=== PATIENT | female | born 1985 | race Caucasian/White ===

== ENCOUNTER 2017-03-01 10:07 | Inpatient (IN) | END 2017-03-04 13:10 | disposition home or self-care (01) | DRG 941 ==

== ENCOUNTER 2018-05-31 06:29 | Emergency (ER) | payer MEDICAID ==
[~2018-05-31] VITALS: Ht 152.4 cm; Wt 66.5 kg
[~2018-05-31 06:29] MED LIST: CALC600T24 PO; IBUP-1542 PO; PREN1TAB17 PO
[2018-05-31 06:31] VITALS: RESP 24; Ht 152.4 cm; Wt 66.5 kg
[2018-05-31] MEDS ORDERED: SOD CHLORIDE 0.9% 150 ML IV STA (06:38)
[2018-05-31] MEDS ORDERED: morphine 4 MG/ML VIAL IV STA (06:38)
[2018-05-31] MEDS ORDERED: ONDANSETRON 4 MG INJ IV STA (06:38)
[2018-05-31] MEDS ORDERED: KETOROLAC 15 MG INJ IV STA (06:38)
[2018-05-31] MEDS ORDERED: SOD CHLORIDE 0.9% 1,000 ML IV STA (07:06)
[2018-05-31] MEDS ORDERED: PIPER-TAZO 3.375 GM IV (PMX) 100 ML IVPB ONE (08:00)
[2018-05-31] MEDS ORDERED: ACET325T33 PO (09:01)
[2018-05-31] MEDS ORDERED: ONDA4TAB14 PO (09:01)
[2018-05-31] MEDS ORDERED: AMOX1TAB9 PO (09:01)
[2018-05-31 09:03] VITALS: BP 120/74; PULSE 71
--- NOTE | 2018-05-31 09:03 | ERD ---
ER Documentation Chief Complaint Chief Complaint RLQ PAIN AND NAUSEA X 1 HOUR HPI 33-year-old female presents the emergency department complaining of right upper quadrant abdominal pain. Patient states that she had the acute onset of a severe right upper quadrant abdominal pain that is been colicky and severe since onset. It is associated with nausea but no vomiting. She reports no fevers or chills. She reports no urinary or gynecologic symptoms. Pain is localized to that single area and does not radiate. ROS All systems reviewed and are negative except as per history of present illness. Medications Home Meds Active Scripts Acetaminophen* (Tylenol*) 325 Mg Tablet, 2 TAB PO Q6 PRN for PAIN AND OR ELEVATED TEMP, #20 TAB Prov:AMADOU BERMUDEZ 05/31/18 Ondansetron (Ondansetron Odt) 4 Mg Tab.rapdis, 4 MG PO Q6H PRN for NAUSEA AND/OR VOMITING, #10 TAB Prov:AMADOU BERMUDEZ 05/31/18 Amoxicillin/Potassium Clav (Amox-Clav 500-125 mg Tablet) 500-125 mg Tab, 1 TAB PO BID for 10 Days, TAB Prov:AMADOU BERMUDEZ 05/31/18 Ibuprofen* (Ibuprofen*) 600 Mg Tablet, 600 MG PO Q6, #30 TAB 0 Refills Prov:RODRÍGUEZ CHU MD 03/03/17 Reported Medications Calcium Carbonate* (Calcium Carbonate*) 600 MG Ca Tab, 600 MG PO DAILY, TAB 08/14/14 Vit-Iron Fumarate-FA ( Tablet) 1 Each Tablet, 1 TAB PO DAILY, TAB 08/14/14 Allergies Allergies: Coded Allergies: No Known Allergies (Verified Allergy, Unknown, 03/01/17) PMhx/Soc History of Surgery: No Anesthesia Reaction: No Hx Neurological Disorder: No Hx Respiratory Disorders: No Hx Cardiac Disorders: No Hx Psychiatric Problems: No Hx Miscellaneous Medical Probl: No Hx Alcohol Use: No Hx Substance Use: No Hx Tobacco Use: No Smoking Status: Never smoker FmHx Noncontributory for chief complaint Physical Exam Vitals Vital Signs Date Temp Pulse Resp B/P (MAP) Pulse Ox O2 O2 Flow FiO2 Time Delivery Rate 05/31/18 97.8 79 24 140/87 99 06:31 (104) Physical Exam GENERAL: The patient is well developed and appropriate for usual state of health in no apparent distress other than the discomfort from her abdominal pain HEENT: Pupils equal, round, and reactive to light. EOMI. There is no scleral icterus. NECK: C-spine is soft and supple, there is no meningismus. There is no cervical lymphadenopathy. LUNGS: Clear to auscultation bilaterally. There are no rales, wheezes or rhonchi. HEART: Regular rate and rhythm, no murmurs, clicks, rubs or gallops. ABDOMEN: Right upper quadrant tenderness. No rebound or guarding. No significant Szymanski sign. No CVA tenderness. EXTREMITIES: There is no peripheral cyanosis or edema. No focal swelling or erythema. NEURO: The patient moves all four extremities with 5/5 strength. Cranial nerves II - XII are intact. Normal gait. Alert and oriented SKIN: There is no apparent rash or petechiae. HEME/LYMPHATIC: There is no evidence of excessive bruising or lymphedema. PSYCHIATRIC: The patient does not appear anxious or depressed. Result Diagram: 05/31/18 0650 05/31/18 0650 Results 24 hrs Laboratory Tests Test 05/31/18 06:05 05/31/18 06:50 05/31/18 06:51 Urine Color YELLOW Urine Clarity SLIGHTLY CLOUDY Urine pH 5.0 Urine Specific [place] 1.025 Urine Ketones NEGATIVE mg/dL Urine Nitrite NEGATIVE mg/dL Urine Bilirubin NEGATIVE mg/dL Urine Urobilinogen NEGATIVE mg/dL Urine Leukocyte Esterase 2+ Gee/ul Urine Microscopic RBC 5 /HPF Urine Microscopic WBC 15 /HPF Urine Squamous Epithelial Cells MODERATE /HPF Urine Bacteria FEW /HPF Urine Hemoglobin 2+ mg/dL Urine Glucose NEGATIVE mg/dL Urine Total Protein NEGATIVE mg/dl White Blood Count 8.1 10^3/ul Red Blood Count 4.26 10^6/ul Hemoglobin 12.7 g/dl Hematocrit 38.7 % Mean Corpuscular Volume 90.8 fl Mean Corpuscular Hemoglobin 29.8 pg Mean Corpuscular 32.8 g/dl Hemoglobin Concent Red Cell Distribution Width 12.4 % Platelet Count 292 10^3/UL Mean Platelet Volume 9.6 fl Immature Granulocytes % 0.400 % Neutrophils % 58.8 % Lymphocytes % 31.3 % Monocytes % 6.8 % Eosinophils % 2.2 % Basophils % 0.5 % Nucleated Red Blood Cells % 0.0 /100WBC Immature Granulocytes # 0.030 10^3/ul Neutrophils # 4.7 10^3/ul Lymphocytes # 2.5 10^3/ul Monocytes # 0.6 10^3/ul Eosinophils # 0.2 10^3/ul Basophils # 0.0 10^3/ul Nucleated Red Blood Cells # 0.0 10^3/ul Sodium Level 142 mmol/L Potassium Level 4.2 mmol/L Chloride Level 106 mmol/L Carbon Dioxide Level 24 mmol/L Anion Gap 12 Blood Urea Nitrogen 20 mg/dl Creatinine 0.56 mg/dl Est Glomerular Filtrat > 60 mL/min Rate mL/min Glucose Level 122 mg/dl Calcium Level 9.7 mg/dl Total Bilirubin 0.2 mg/dl Direct Bilirubin 0.00 mg/dl Indirect Bilirubin 0.2 mg/dl Aspartate Amino Transf (AST/SGOT) 20 IU/L Alanine 29 IU/L Aminotransferase (ALT/SGPT) Alkaline Phosphatase 132 IU/L Total Protein 7.7 g/dl Albumin 4.6 g/dl Globulin 3.10 g/dl Albumin/Globulin Ratio 1.48 Lipase 148 U/L POC Beta HCG, Qualitative NEGATIVE Current Medications Medications Dose Sig/Al Start Time Status Last (Trade) Ordered Route PRN Stop Time Admin Dose Reason Admin Sodium 150 ml @ Q1H STAT 05/31/18 DC Chloride 150 mls/hr IV 06:38 05/31/18 07:37 Morphine 4 mg ONCE STAT 05/31/18 DC 05/31/18 Sulfate IV 06:38 05/31/18 07:00 (morphine) 06:40 Ondansetron 4 mg ONCE STAT 05/31/18 DC 05/31/18 HCl (Zofran IV 06:38 05/31/18 07:00 Inj) 06:40 Ketorolac 15 mg ONCE STAT 05/31/18 DC 05/31/18 Tromethamine IV 06:38 05/31/18 07:00 (Toradol) 06:40 Sodium 1,000 ml @ Q1H STAT 05/31/18 DC 05/31/18 Chloride 1,000 mls/hr IV 07:06 05/31/18 07:31 08:05 Piperacillin 100 ml @ ONCE ONCE 05/31/18 DC 05/31/18 Sod/ 200 mls/hr IVPB 08:00 05/31/18 08:17 Tazobactam 08:29 Sod Procedures/MDM Patient was taken to a room, seen and evaluated. Comfort measures were initiated. Diagnostic tests were ordered and reviewed. RADIOLOGY: Reviewed with the radiologist REEVALUATION: 0900: Diagnostic tests were appreciated. Sterile examinations of the abdomen remained benign her pain completely resolved. MEDICAL DECISION MAKING: Patient presents with abdominal pain of uncertain etiology. Differential diagnosis considered includes appendicitis, diverticulitis, cholecystitis and other intra-abdominal medical and surgical concerns. I have reviewed the patients lab studies and imaging as well as multiple examinations of the abdomen. Initial diagnostic test demonstrated evidence of cholecystitis. After antibiotics and supportive care in the emergency department, her pain is well controlled and she shows no evidence of significant infection, obstruction or pancreatitis. I have discussed both inpatient and outpatient options with the patient and she feels comfortable with outpatient care at this time. Departure Diagnosis: Primary Impression: Cholecystitis Condition: Stable Patient Instructions: Cholecystitis, Confirmed Additional Instructions: Consulte a drake mdico para el seguimiento segn lo discutido. Lleve shelli copia de los resultados de drake prueba, si corresponde, a esta visita de seguimiento. Consulte a drake mdico o regrese aqu si flakita sntomas no mejoran bronson se esperaba. En cualquier momento, regrese al departamento de emergencias por cualquier cambio o empeoramiento en flakita sntomas. AMADOU BERMUDEZ May 31, 2018 09:03
== END 2018-05-31 09:09 | disposition home or self-care (01) ==
LOC: FTE 06:29
DX: K81.9 Cholecystitis, unspecified (principal)
CPT/HCPCS: 76705; 80053; 81001; 81025; 83690; 85025; J1885; J2270; J2405; J2543; J7030; J7040; 36415; 96361; 96374; 96375

== ENCOUNTER 2018-06-19 03:50 | Emergency (ER) | payer MEDICAID ==
[~2018-06-19] VITALS: Ht 160 cm; Wt 66.8 kg
[~2018-06-19 03:50] MED LIST changes: +ACET325T33 PO; +AMOX1TAB9 PO; +ONDA4TAB14 PO
[2018-06-19 03:54] VITALS: Ht 160 cm; Wt 66.8 kg
[2018-06-19] MEDS ORDERED: ONDANSETRON (ODT) 4 MG TAB ODT STA (04:19)
[2018-06-19] MEDS ORDERED: KETOROLAC 30 MG INJ IM STA (04:19)
[2018-06-19] MEDS ORDERED: ONDA4TAB14 PO (05:45)
[2018-06-19] MEDS ORDERED: IBUP-1542 PO (05:45)
[2018-06-19] MEDS ORDERED: ACET-141 PO (05:45)
--- NOTE | 2018-06-19 05:47 | ERD ---
ER Documentation Chief Complaint Chief Complaint right upper abd pain x 1 hour, hx of gallstone ROS All systems reviewed and are negative except as per history of present illness. Medications Home Meds Active Scripts Acetaminophen* (Acetaminophen*) 500 MG Extra Strength Tablet, 500 MG PO Q4H PRN for PAIN AND OR ELEVATED TEMP, #30 TAB Prov:MORALESNINOSKA 06/19/18 Ondansetron (Ondansetron Odt) 4 Mg Tab.rapdis, 4 MG PO Q6H PRN for NAUSEA AND/OR VOMITING, #15 TAB Prov:NINOSKA MORALES 06/19/18 Ibuprofen* (Motrin*) 600 Mg Tab, 600 MG PO Q6H PRN for PAIN AND OR ELEVATED TEMP, #30 TAB Prov:NINOSKA MORALES 06/19/18 Acetaminophen* (Tylenol*) 325 Mg Tablet, 2 TAB PO Q6 PRN for PAIN AND OR ELEVATED TEMP, #20 TAB Prov:AMADOU BERMUDEZ 05/31/18 Ondansetron (Ondansetron Odt) 4 Mg Tab.rapdis, 4 MG PO Q6H PRN for NAUSEA AND/OR VOMITING, #10 TAB Prov:AMADOU BERMUDEZ 05/31/18 Amoxicillin/Potassium Clav (Amox-Clav 500-125 mg Tablet) 500-125 mg Tab, 1 TAB PO BID for 10 Days, TAB Prov:AMADOU BERMUDEZ 05/31/18 Ibuprofen* (Ibuprofen*) 600 Mg Tablet, 600 MG PO Q6, #30 TAB 0 Refills Prov:RODRÍGUEZ CHU MD 03/03/17 Reported Medications Calcium Carbonate* (Calcium Carbonate*) 600 MG Ca Tab, 600 MG PO DAILY, TAB 08/14/14 Vit-Iron Fumarate-FA ( Tablet) 1 Each Tablet, 1 TAB PO DAILY, TAB 08/14/14 Allergies Allergies: Coded Allergies: No Known Allergies (Verified Allergy, Unknown, 03/01/17) PMhx/Soc History of Surgery: No Anesthesia Reaction: No Hx Neurological Disorder: No Hx Respiratory Disorders: No Hx Cardiac Disorders: No Hx Psychiatric Problems: No Hx Miscellaneous Medical Probl: Yes (gallstones) Hx Alcohol Use: No Hx Substance Use: No Hx Tobacco Use: No Smoking Status: Never smoker Physical Exam Vitals Vital Signs Date Temp Pulse Resp B/P (MAP) Pulse Ox O2 O2 Flow FiO2 Time Delivery Rate 06/19/18 98.2 74 18 124/88 100 03:54 (100) Physical Exam Const: No acute distress Head: Atraumatic Eyes: Normal Conjunctiva ENT: Normal External Ears, Nose and Mouth. Neck: Full range of motion. No meningismus. Resp: Clear to auscultation bilaterally Cardio: Regular rate and rhythm, no murmurs Abd: Soft, non tender, non distended. Normal bowel sounds Skin: No petechiae or rashes Back: No midline or flank tenderness Ext: No cyanosis, or edema Neur: Awake and alert Psych: Normal Mood and Affect Result Diagram: 06/19/1842606/19/18426 Results 24 hrs Laboratory Tests Test 06/19/18 04:26 06/19/18 04:27 06/19/18 04:29 Urine Color YELLOW Urine Clarity SLIGHTLY CLOUDY Urine pH 5.0 Urine Specific [place] 1.021 Urine Ketones NEGATIVE mg/dL Urine Nitrite NEGATIVE mg/dL Urine Bilirubin NEGATIVE mg/dL Urine Urobilinogen NEGATIVE mg/dL Urine Leukocyte Esterase TRACE Gee/ul Urine Microscopic RBC 4 /HPF Urine Microscopic WBC 6 /HPF Urine Squamous Epithelial Cells FEW /HPF Urine Bacteria FEW /HPF Urine Hemoglobin 2+ mg/dL Urine Glucose NEGATIVE mg/dL Urine Total Protein NEGATIVE mg/dl White Blood Count 10.1 10^3/ul Red Blood Count 4.09 10^6/ul Hemoglobin 12.4 g/dl Hematocrit 37.0 % Mean Corpuscular Volume 90.5 fl Mean Corpuscular Hemoglobin 30.3 pg Mean Corpuscular 33.5 g/dl Hemoglobin Concent Red Cell Distribution Width 12.4 % Platelet Count 287 10^3/UL Mean Platelet Volume 10.3 fl Immature Granulocytes % 0.200 % Neutrophils % 60.8 % Lymphocytes % 29.7 % Monocytes % 6.2 % Eosinophils % 2.7 % Basophils % 0.4 % Nucleated Red Blood Cells % 0.0 /100WBC Immature Granulocytes # 0.020 10^3/ul Neutrophils # 6.1 10^3/ul Lymphocytes # 3.0 10^3/ul Monocytes # 0.6 10^3/ul Eosinophils # 0.3 10^3/ul Basophils # 0.0 10^3/ul Nucleated Red Blood Cells # 0.0 10^3/ul Sodium Level 140 mmol/L Potassium Level 4.1 mmol/L Chloride Level 103 mmol/L Carbon Dioxide Level 24 mmol/L Anion Gap 13 Blood Urea Nitrogen 16 mg/dl Creatinine 0.55 mg/dl Est Glomerular Filtrat > 60 mL/min Rate mL/min Glucose Level 111 mg/dl Calcium Level 9.7 mg/dl Total Bilirubin 0.3 mg/dl Direct Bilirubin 0.00 mg/dl Indirect Bilirubin 0.3 mg/dl Aspartate Amino 21 IU/L Transf (AST/SGOT) Alanine 29 IU/L Aminotransferase (ALT/SGPT) Alkaline Phosphatase 94 IU/L Total Protein 7.7 g/dl Albumin 4.5 g/dl Globulin 3.20 g/dl Albumin/Globulin Ratio 1.40 Lipase 123 U/L POC Beta HCG, Qualitative NEGATIVE Current Medications Medications Dose Sig/Al Start Time Status Last (Trade) Ordered Route PRN Stop Time Admin Dose Reason Admin Ketorolac 30 mg ONCE STAT 06/19/18 DC 06/19/18 Tromethamine IM 04:19 04:36 (Toradol) 06/19/18 04:21 Ondansetron 4 mg ONCE STAT 06/19/18 DC 06/19/18 HCl (Zofran ODT 04:19 04:30 Odt) 06/19/18 04:21 Departure Diagnosis: Primary Impression: Biliary colic Condition: Fair Patient Instructions: Biliary Colic With Gallstone (Confirmed) Referrals: [facility] YOU HAVE RECEIVED A MEDICAL SCREENING EXAM AND THE RESULTS INDICATE THAT YOU DO NOT HAVE A CONDITION THAT REQUIRES URGENT TREATMENT IN THE EMERGENCY DEPARTMENT. FURTHER EVALUATION AND TREATMENT OF YOUR CONDITION CAN WAIT UNTIL YOU ARE SEEN IN YOUR DOCTORS OFFICE WITHIN THE NEXT 1-2 DAYS. IT IS YOUR RESPONSIBILITY TO MAKE AN APPOINTMENT FOR FOLOW-UP CARE. IF YOU HAVE A PRIMARY DOCTOR --you should call your primary doctor and schedule an appointment IF YOU DO NOT HAVE A PRIMARY DOCTOR YOU CAN CALL OUR PHYSICIAN REFERRAL HOTLINE AT IF YOU CAN NOT AFFORD TO SEE A PHYSICIAN YOU CAN CHOSE FROM THE FOLLOWING [facility] CLINICS [facility] [address]. [facility] [address] [facility]. [facility] [address] [facility] [address] [facility] [address] [facility]. [facility] [address] Additional Instructions: Call your primary care doctor TOMORROW for an appointment during the next 1-2 days.See the doctor sooner or return here if your condition worsens before your appointment time. NINOSKA MORALES DO Jun 19, 2018 05:47
[2018-06-19 05:55] VITALS: BP 108/70; PULSE 69; RESP 18
== END 2018-06-19 05:55 | disposition home or self-care (01) ==
LOC: FTE 03:50
DX: K80.50 Calculus of bile duct without cholangitis or cholecystitis without obstruction (principal)
CPT/HCPCS: 36415; 76705; 80053; 81001; 81025; 83690; 85025; 96372; J1885; Z7502; Z7610

== ENCOUNTER 2018-08-26 01:24 | Inpatient (IN) | payer MEDICAID ==
[2018-08-26] VITALS (22 sets, daily range): BP systolic 99–131; BP diastolic 60–86; PULSE 60–91; RESP 10–36; Ht 152.4 cm; Wt 65.8 kg
[~2018-08-26] VITALS: Ht 152.4 cm; Wt 65.8 kg
[~2018-08-26 01:24] MED LIST changes: +ACET-141 PO
[2018-08-26] MEDS ORDERED: KETOROLAC 15 MG INJ IV STA (01:45)
[2018-08-26] MEDS ORDERED: SOD CHLORIDE 0.9% 1,000 ML IV STA (01:45)
[2018-08-26] MEDS ORDERED: ONDANSETRON 4 MG INJ IV STA (01:45)
[2018-08-26] MEDS ORDERED: morphine 4 MG/ML VIAL IV STA (01:45)
--- NOTE | 2018-08-26 01:49 | ERD ---
ER Documentation Chief Complaint Chief Complaint RUQ abd pain x 3 hrs; hx of stones; nausea MELODIE Is a 33-year-old female who presents for evaluation of right upper quadrant pain for the last 3 hours. She has a history of gallstones, she endorses nausea. She denies any fever. There are no alleviating or aggravating factors. ROS All systems reviewed and are negative except as per history of present illness. Medications Home Meds Active Scripts Acetaminophen* (Acetaminophen*) 500 MG Extra Strength Tablet, 500 MG PO Q4H PRN for PAIN AND OR ELEVATED TEMP, #30 TAB Prov:NINOSKA MORALES 06/19/18 Ondansetron (Ondansetron Odt) 4 Mg Tab.rapdis, 4 MG PO Q6H PRN for NAUSEA AND/OR VOMITING, #15 TAB Prov:MORALESNINOSKA DOMINGUEZ 06/19/18 Ibuprofen* (Motrin*) 600 Mg Tab, 600 MG PO Q6H PRN for PAIN AND OR ELEVATED TEMP, #30 TAB Prov:MORALESNINOSKA 06/19/18 Acetaminophen* (Tylenol*) 325 Mg Tablet, 2 TAB PO Q6 PRN for PAIN AND OR ELEVATED TEMP, #20 TAB Prov:AMADOU BERMUDEZ 05/31/18 Ondansetron (Ondansetron Odt) 4 Mg Tab.rapdis, 4 MG PO Q6H PRN for NAUSEA AND/OR VOMITING, #10 TAB Prov:AMADOU BERMUDEZ 05/31/18 Amoxicillin/Potassium Clav (Amox-Clav 500-125 mg Tablet) 500-125 mg Tab, 1 TAB PO BID for 10 Days, TAB Prov:AMADOU BERMUDEZ 05/31/18 Ibuprofen* (Ibuprofen*) 600 Mg Tablet, 600 MG PO Q6, #30 TAB 0 Refills Prov:RODRÍGUEZ CHU MD 03/03/17 Reported Medications Calcium Carbonate* (Calcium Carbonate*) 600 MG Ca Tab, 600 MG PO DAILY, TAB 08/14/14 Vit-Iron Fumarate-FA ( Tablet) 1 Each Tablet, 1 TAB PO DAILY, TAB 08/14/14 Allergies Allergies: Coded Allergies: No Known Allergies (Verified Allergy, Unknown, 03/01/17) PMhx/Soc History of Surgery: No Anesthesia Reaction: No Hx Neurological Disorder: No Hx Respiratory Disorders: No Hx Cardiac Disorders: No Hx Psychiatric Problems: No Hx Miscellaneous Medical Probl: Yes (gallstones) Hx Alcohol Use: No Hx Substance Use: No Hx Tobacco Use: No Physical Exam Vitals Vital Signs Date Temp Pulse Resp B/P (MAP) Pulse Ox O2 O2 Flow FiO2 Time Delivery Rate 08/26/18 98.6 71 18 136/81 100 01:28 (99) Physical Exam Const: No acute distress Head: Atraumatic Eyes: Normal Conjunctiva ENT: Normal External Ears, Nose and Mouth. Neck: Full range of motion. No meningismus. Resp: Clear to auscultation bilaterally Cardio: Regular rate and rhythm, no murmurs Abd: Soft, right upper quadrant tenderness, non distended. Normal bowel sounds Skin: No petechiae or rashes Back: No midline or flank tenderness Ext: No cyanosis, or edema Neur: Awake and alert Psych: Normal Mood and Affect Result Diagram: 08/26/18 0200 08/26/18 0200 Results 24 hrs Laboratory Tests Test 08/26/18 02:00 08/26/18 02:12 White Blood Count 9.5 10^3/ul Red Blood Count 4.22 10^6/ul Hemoglobin 12.5 g/dl Hematocrit 36.9 % Mean Corpuscular Volume 87.4 fl Mean Corpuscular Hemoglobin 29.6 pg Mean Corpuscular Hemoglobin Concent 33.9 g/dl Red Cell Distribution Width 12.3 % Platelet Count 303 10^3/UL Mean Platelet Volume 10.3 fl Immature Granulocytes % 0.200 % Neutrophils % 53.4 % Lymphocytes % 37.4 % Monocytes % 6.2 % Eosinophils % 2.2 % Basophils % 0.6 % Nucleated Red Blood Cells % 0.0 /100WBC Immature Granulocytes # 0.020 10^3/ul Neutrophils # 5.1 10^3/ul Lymphocytes # 3.6 10^3/ul Monocytes # 0.6 10^3/ul Eosinophils # 0.2 10^3/ul Basophils # 0.1 10^3/ul Nucleated Red Blood Cells # 0.0 10^3/ul Prothrombin Time 12.0 Sec Prothrombin Time Ratio 0.9 INR International Normalized Ratio 0.88 Sodium Level 142 mmol/L Potassium Level 3.7 mmol/L Chloride Level 103 mmol/L Carbon Dioxide Level 25 mmol/L Anion Gap 14 Blood Urea Nitrogen 24 mg/dl Creatinine 0.65 mg/dl Est Glomerular Filtrat Rate mL/min > 60 mL/min Glucose Level 124 mg/dl Calcium Level 9.8 mg/dl Total Bilirubin 0.3 mg/dl Direct Bilirubin 0.00 mg/dl Indirect Bilirubin 0.3 mg/dl Aspartate Amino Transf (AST/SGOT) 30 IU/L Alanine Aminotransferase (ALT/SGPT) 32 IU/L Alkaline Phosphatase 95 IU/L Total Protein 8.7 g/dl Albumin 4.9 g/dl Globulin 3.80 g/dl Albumin/Globulin Ratio 1.28 Lipase 138 U/L POC Beta HCG, Qualitative NEGATIVE Current Medications Medications Dose Sig/Al Start Time Status Last (Trade) Ordered Route PRN Stop Time Admin Dose Reason Admin Sodium 1,000 ml @ Q1H STAT 08/26/18 DC 08/26/18 Chloride 1,000 mls/hr IV 01:45 01:56 08/26/18 02:44 Morphine 4 mg ONCE STAT 08/26/18 DC 08/26/18 Sulfate IV 01:45 01:56 (morphine) 08/26/18 01:47 Ondansetron 4 mg ONCE STAT 08/26/18 DC 08/26/18 HCl (Zofran IV 01:45 01:57 Inj) 08/26/18 01:47 Ketorolac 15 mg ONCE STAT 08/26/18 DC 08/26/18 Tromethamine IV 01:45 02:30 (Toradol) 08/26/18 01:47 Procedures/MDM Is a 33-year-old female who presents for evaluation of abdominal pain. On exam patient had significant right upper quadrant tenderness, her ultrasound showed distended gallbladder, with gallstones present, positive sonographic Szymanski sign, her CBD was dilated to 7.96 mm, her LFTs with within normal limits, given findings, patient will be admitted. She is treated pain control, and remained hemodynamically stable in the ED. Accepting Care Team: Current data and ongoing care discussed. Primary: Consulting: Outstanding Data: none Departure Diagnosis: Primary Impression: Abdominal pain Abdominal location: unspecified location Qualified Codes: R10.9 - Unspecified abdominal pain Condition: Stable BUD PINEDA MD Aug 26, 2018 01:49
[2018-08-26] MEDS ORDERED: NACL 0.9% 3 ML SYG IV SCH (03:30)
[2018-08-26] MEDS ORDERED: ACETAMINOPHEN 325 MG TAB PO PRN (03:30)
[2018-08-26] MEDS ORDERED: DOCUSATE SODIUM 100 MG CAP PO PRN (03:30)
[2018-08-26] MEDS ORDERED: ONDANSETRON 4 MG INJ IV PRN ×3 (03:30→18:30)
[2018-08-26] MEDS ORDERED: BISACODYL (EC) 5 MG TAB PO PRN (03:30)
[2018-08-26] MEDS: SOD CHLORIDE 0.9% 1,000 ML IV SCH ×3 (04:44→21:38)
[2018-08-26] MEDS: PIPER-TAZO 3.375 GM IV (PMX) 100 ML IVPB SCH ×3 (06:04→19:20)
--- NOTE | 2018-08-26 08:10 | HP ---
Date/Time of Note Date/Time of Note DATE: 08/26/18 TIME: 08:04 Assessment/Plan VTE Prophylaxis SCD applied (from Nsg): Yes Pharmacological prophylaxis: NA/contraindicated Pharm contraindication: low risk/ambulating Lines/Catheters IV Catheter Type (from Nrsg): Peripheral IV Urinary Cath still in place: No Assessment/Plan Hospital Course This is a 33-year-old female being admitted to the [facility] floor for: #1 suspect acute cholecystitis: Gallbladder ultrasound shows signs of acute cholecystitis as well as dilated CBD of 8 millimeters, However her LFTs are within normal values. She also is afebrile and has a normal white blood cell count. Nonetheless we will put the patient on Zosyn for surgical prophylaxis. Will obtain an MRCP. Consider GI consultation. General surgery has already been consulted Dr. Palmer. #2 history of gallstones: Please see #1. #3 continue prophylaxis: SCDs, no GI prophylaxis indicated Further treatment strategy will be implemented as per the clinical course. Result Diagram: 08/26/18 0200 08/26/18 0200 Results 24hrs Laboratory Tests Test 08/26/18 02:00 08/26/18 02:12 White Blood Count 9.5 Red Blood Count 4.22 Hemoglobin 12.5 Hematocrit 36.9 L Mean Corpuscular Volume 87.4 Mean Corpuscular Hemoglobin 29.6 Mean Corpuscular Hemoglobin Concent 33.9 Red Cell Distribution Width 12.3 Platelet Count 303 Mean Platelet Volume 10.3 Immature Granulocytes % 0.200 Neutrophils % 53.4 Lymphocytes % 37.4 Monocytes % 6.2 Eosinophils % 2.2 Basophils % 0.6 Nucleated Red Blood Cells % 0.0 Immature Granulocytes # 0.020 Neutrophils # 5.1 Lymphocytes # 3.6 H Monocytes # 0.6 Eosinophils # 0.2 Basophils # 0.1 Nucleated Red Blood Cells # 0.0 Prothrombin Time 12.0 Prothrombin Time Ratio 0.9 INR International Normalized Ratio 0.88 Sodium Level 142 Potassium Level 3.7 Chloride Level 103 Carbon Dioxide Level 25 Anion Gap 14 H Blood Urea Nitrogen 24 H Creatinine 0.65 Est Glomerular Filtrat Rate mL/min > 60 Glucose Level 124 Calcium Level 9.8 Total Bilirubin 0.3 Direct Bilirubin 0.00 Indirect Bilirubin 0.3 Aspartate Amino Transf (AST/SGOT) 30 Alanine Aminotransferase (ALT/SGPT) 32 Alkaline Phosphatase 95 Total Protein 8.7 H Albumin 4.9 Globulin 3.80 H Albumin/Globulin Ratio 1.28 Lipase 138 POC Beta HCG, Qualitative NEGATIVE HPI/ROS Admit Date/Time Admit Date/Time Aug 26, 2018 at 03:28 Hx of Present Illness Chief complaint: Right upper quadrant abdominal pain This is a 33-year-old female with a past medical history of gallstones who presents to the emergency department complaining of right upper quadrant abdominal pain. patient has dealt with the same pain and been to the emergency department 3 times for this. She states that the pain last night came 1 hour approximately after she ate. She states the pain was sharp and constant for approximately 3 hours. In the past she would take Tylenol to help with her pain but it was not helping. She denies any nausea vomiting or diarrhea. Denies any fevers. Allergies: NKDA medications: Tylenol ROS Const: As per HPI Eyes : No pain discharge or redness or change in visual acuity ENT: No pain, sore throat, congestion, congestion, dysphagia or discharge Respiratory: No shortness of breath, cough, sputum, wheezing, or pleuritic pain Cardiovascular: No chest pain, palpitation, PND, or edema GI : As per HPI Genitourinary: No dysuria, hematuria, flank pain , discharge or CVA tenderness Musculoskeletal: No joint pain, back pain, neck pain, restricted range of motion in neck or joints Skin: No rash, bruising or hives Neuro: No headache, dizziness, syncope, seizure, focal weakness Endocrine: No polyuria, polydipsia, temperature intolerance Psych: No hallucination, depression, anxiety or suicidal ideation PMH/Family/Social Past Medical History Gallstones Medications Current Medications Ondansetron HCl (Zofran Inj) 4 mg BRIDGE ORDER PRN IV NAUSEA/VOMITING; Start 08/26/18 at 03:30; Stop 08/27/18 at 03:29 Acetaminophen (Tylenol Tab) 650 mg ER BRIDGE PRN PO .MILD PAIN 1-3 OR TEMP; Start 08/26/18 at 03:30; Stop 08/27/18 at 03:29 Sodium Chloride 1,000 ml @ 80 mls/hr [id number] IV Last administered on 08/26/18at 04:44; Admin Dose 80 MLS/HR; Start 08/26/18 at 03:26 IV Flush (NS 3 ml) 3 ml PER PROTOCOL IV ; Start 08/26/18 at 03:30 Ondansetron HCl (Zofran Inj) 4 mg Q6H PRN IV NAUSEA/VOMITING; Start 08/26/18 at 03:30 Acetaminophen (Tylenol Tab) 650 mg Q6H PRN PO .PAIN 1-3 OR TEMP; Start 08/26/18 at 03:30 Hydromorphone HCl (Dilaudid) 0.5 mg Q4H PRN IV .SEVERE PAIN 7-10; Start 08/26/18 at 03:30 Docusate Sodium (Colace) 100 mg Q12H PRN PO .CONSTIPATION; Start 08/26/18 at 03:30 Bisacodyl (Dulcolax) 5 mg DAILY PRN PO .CONSTIPATION; Start 08/26/18 at 03:30 Piperacillin Sod/ Tazobactam Sod 100 ml @ 200 mls/hr Q6 IVPB Last administered on 08/26/18at 06:04; Admin Dose 200 MLS/HR; Start 08/26/18 at 06:00 Coded Allergies: No Known Allergies (Unverified Allergy, Unknown, 08/26/18) Past Surgical History Tubal ligation Family History Significant Family History: no pertinent family hx Social History Smoking Status: Never smoker Drug Use: none Exam/Review of Systems Vital Signs Vitals Vital Signs Date Temp Pulse Resp B/P (MAP) Pulse Ox O2 O2 Flow FiO2 Time Delivery Rate 08/26/18 98.3 72 20 131/65 99 04:44 (87) 08/26/18 Room Air 04:16 Intake and Output 08/25/18 08/25/18 08/26/18 1515:00 23:00 07:00 IntakeIntake Total 100 ml BalanceBalance 100 ml Exam Exam General: Patient is a pleasant female currently lying in bed in no acute distr ess HEENT: Atraumatic, normocephalic. The pupils are equal, round and reactive. Extraocular motor are intact Neck: Supple with full range of motion. No rigidity or meningismus Chest: Nontender Lungs: Clear to auscultation bilaterally no crackles rales or wheezing Heart: Normal S1-S2, Regular rhythm and rate. No murmur, S3, or S4 Abdomen: Soft , currently she is nontender to palpation of the right upper quadrant, nondistended , bowel sounds are present. No guarding no rebound tenderness , No masses or organomegaly. No costovertebral temporal angle mass Extremities: Normal to inspection, no edema no cyanosis Neurologic: Normal mental status, speech normal, cranial nerves II through XII are intact, motor and sensory are intact, no focal weakness Additional Comments PROCEDURE: ULTRASOUND LIMITED ABDOMEN CLINICAL INDICATION: 33-year-old female with abdominal pain. TECHNIQUE: Multiple sonographic of the right upper quadrant of the abdomen were obtained. The images were reviewed on a PACS workstation. COMPARISON: None. FINDINGS: The pancreas is partially visualized and is otherwise without abnormal echogenicity. The liver displays diffuse increased echogenicity. The liver measures 17.6 cm in length. No evidence of intrahepatic biliary ductal dilatation is seen. The portal and hepatic veins are unremarkable. The gallbladder is distended and contains echogenic sludge and shadowing stones. The gallbladder wall thickness is within normal limits measuring 2.8 mm. No pericholecystic fluid is seen. The common bile duct measures 8.0 mm and is dilated. There is a positive sonographic Szymanski's sign. The right kidney displays normal echogenicity. The right kidney measures 11.7 cm in maximal length. No caliectasis or hydronephrosis is seen. No free fluid is seen. IMPRESSION: 1. Hepatic steatosis. 2. Cholelithiasis with dilated common bile duct and positive Szymanski's sign consistent with sonographic evidence for cholecystitis. Clinical correlation is necessary. .Alex Montemayor MD, Date Time Electronically viewed and signed by .Alex Montemayor MD, on 08/26/2018 04:21 .M/ CC: BUD PINEDA MD [id number] THAO RODRIGUEZ Aug 26, 2018 08:10
--- NOTE | 2018-08-26 10:35 | PN ---
Date/Time of Note Date/Time of Note DATE: 08/26/18 TIME: 10:28 Assessment/Plan VTE Prophylaxis SCD applied (from Nsg): Yes Pharmacological prophylaxis: NA/contraindicated Pharm contraindication: low risk/ambulating Lines/Catheters IV Catheter Type (from Nrsg): Peripheral IV Urinary Cath still in place: No Assessment/Plan Assessment/Plan 33 yo woman no major PMH or PSH presents with biliary colic. # Biliary colic: - No cholecystitis by US (although she did have positive Szymanski's). - Dilated CBD 8 mm - Patient is begging for elective cholecystectomy to prevent future episodes. This is her third episode of symptomatic cholelithiasis requiring ED visit. - Plan for MRCP to rule out choledocholithiasis - Dr. Palmer consulted. - Zosyn - NPO # prophylaxis: SCDs, no GI prophylaxis indicated Result Diagram: 08/26/18 02008/26/18 020 Subjective 24 Hr Interval Summary Free Text/Dictation Symptoms now resolved. Patient has been NPO since admission but there is hospital food at bedside for unclear reasons. Patient reports no pain or nausea with diet. She is begging to have surgery to prevent recurrence of symptoms. Exam/Review of Systems Exam Vitals Vital Signs Date Temp Pulse Resp B/P (MAP) Pulse Ox O2 O2 Flow FiO2 Time Delivery Rate 08/26/18 98.7 83 16 99/60 (73) 98 Room Air 08:15 Intake and Output 08/25/18 08/25/18 08/26/18 1515:00 23:00 07:00 IntakeIntake Total 100 ml BalanceBalance 100 ml Exam General: Well appearing woman lying in bed, no distress. HEENT: Atraumatic, normocephalic. The pupils are equal, round and reactive. Neck: Supple with full range of motion. No rigidity or meningismus Chest: Nontender Lungs: Clear to auscultation bilaterally no crackles rales or wheezing Heart: Normal S1-S2, Regular rhythm and rate. No murmur, S3, or S4 Abdomen: Soft , currently she is nontender to palpation throughout, nondistended. Extremities: Normal to inspection, no edema no cyanosis Results Results 24hrs Laboratory Tests Test 08/26/18 02:00 08/26/18 02:12 White Blood Count 9.5 Red Blood Count 4.22 Hemoglobin 12.5 Hematocrit 36.9 L Mean Corpuscular Volume 87.4 Mean Corpuscular Hemoglobin 29.6 Mean Corpuscular Hemoglobin Concent 33.9 Red Cell Distribution Width 12.3 Platelet Count 303 Mean Platelet Volume 10.3 Immature Granulocytes % 0.200 Neutrophils % 53.4 Lymphocytes % 37.4 Monocytes % 6.2 Eosinophils % 2.2 Basophils % 0.6 Nucleated Red Blood Cells % 0.0 Immature Granulocytes # 0.020 Neutrophils # 5.1 Lymphocytes # 3.6 H Monocytes # 0.6 Eosinophils # 0.2 Basophils # 0.1 Nucleated Red Blood Cells # 0.0 Prothrombin Time 12.0 Prothrombin Time Ratio 0.9 INR International Normalized Ratio 0.88 Sodium Level 142 Potassium Level 3.7 Chloride Level 103 Carbon Dioxide Level 25 Anion Gap 14 H Blood Urea Nitrogen 24 H Creatinine 0.65 Est Glomerular Filtrat Rate mL/min > 60 Glucose Level 124 Calcium Level 9.8 Total Bilirubin 0.3 Direct Bilirubin 0.00 Indirect Bilirubin 0.3 Aspartate Amino Transf (AST/SGOT) 30 Alanine Aminotransferase (ALT/SGPT) 32 Alkaline Phosphatase 95 Total Protein 8.7 H Albumin 4.9 Globulin 3.80 H Albumin/Globulin Ratio 1.28 Lipase 138 POC Beta HCG, Qualitative NEGATIVE Medications Medication Current Medications Ondansetron HCl (Zofran Inj) 4 mg BRIDGE ORDER PRN IV NAUSEA/VOMITING; Start 08/26/18 at 03:30; Stop 08/27/18 at 03:29 Acetaminophen (Tylenol Tab) 650 mg ER BRIDGE PRN PO .MILD PAIN 1-3 OR TEMP Last administered on 08/26/18at 09:05; Admin Dose 650 MG; Start 08/26/18 at 03:30; Stop 08/27/18 at 03:29 Sodium Chloride 1,000 ml @ 80 mls/hr [id number] IV Last administered on 08/26/18at 04:44; Admin Dose 80 MLS/HR; Start 08/26/18 at 03:26 IV Flush (NS 3 ml) 3 ml PER PROTOCOL IV ; Start 08/26/18 at 03:30 Ondansetron HCl (Zofran Inj) 4 mg Q6H PRN IV NAUSEA/VOMITING; Start 08/26/18 at 03:30 Acetaminophen (Tylenol Tab) 650 mg Q6H PRN PO .PAIN 1-3 OR TEMP; Start 08/26/18 at 03:30 Hydromorphone HCl (Dilaudid) 0.5 mg Q4H PRN IV .SEVERE PAIN 7-10; Start 08/26/18 at 03:30 Docusate Sodium (Colace) 100 mg Q12H PRN PO .CONSTIPATION; Start 08/26/18 at 0 3:30 Bisacodyl (Dulcolax) 5 mg DAILY PRN PO .CONSTIPATION; Start 08/26/18 at 03:30 Piperacillin Sod/ Tazobactam Sod 100 ml @ 200 mls/hr Q6 IVPB Last administered on 08/26/18at 06:04; Admin Dose 200 MLS/HR; Start 08/26/18 at 06:00 ANT CRANE MD Aug 26, 2018 10:35
--- NOTE | 2018-08-26 12:47 | CONS ---
Assessment/Plan Assessment/Plan Assessment/Plan (Daily) Clinically, this patient has acute cholecystitis and will be benefited from laparoscopic cholecystectomy. I have discussed the procedure, indications, outcomes expectations alternatives and risks in detail with the patient and . Because of logistics in OR availability, her surgery will be performed tomorrow morning. Consultation Date/Type/Reason Admit Date/Time Aug 26, 2018 at 03:28 Date of Consultation: Aug 26, 2018 Type of Consult General surgery Reason for Consultation Acute cholecystitis Date/Time of Note DATE: 08/26/18 TIME: 12:44 Hx of Present Illness The patient is an otherwise healthy 33-year-old female who is 1/2-year and is still breast-feeding. She has known about gallstones for approximately 3 months. She presented to the emergency room yesterday with severe midepigastric and right upper quadrant abdominal pain. Abdominal ultrasound showed gallstones and gallbladder wall thickening. Her CBD was dilated to 8 mm. Her LFTs were normal. She has had no fevers chills or jaundice. Review of systems: HEENT: Within normal limits Pulmonary: No history of asthma, shortness of breath or pneumonia Cardiac: No history of chest pain, VT or arrhythmia GI: As in the HPI : Asymptomatic Past Medical History Medical History: gallstones Home Meds Active Scripts Acetaminophen* (Tylenol*) 325 Mg Tablet, 2 TAB PO Q6 PRN for PAIN AND OR ELEVATED TEMP, #20 TAB Prov:AMADOU BERMUDEZ 05/31/18 Discontinued Reported Medications Calcium Carbonate* (Calcium Carbonate*) 600 MG Ca Tab, 600 MG PO DAILY, TAB 08/14/14 Vit-Iron Fumarate-FA ( Tablet) 1 Each Tablet, 1 TAB PO DAILY, TAB 08/14/14 Discontinued Scripts Acetaminophen* (Acetaminophen*) 500 MG Extra Strength Tablet, 500 MG PO Q4H PRN for PAIN AND OR ELEVATED TEMP, #30 TAB Prov:NINOSKA MORALES DO 06/19/18 Ondansetron (Ondansetron Odt) 4 Mg Tab.rapdis, 4 MG PO Q6H PRN for NAUSEA AND/OR VOMITING, #15 TAB Prov:NINOSKA MORALES DO 06/19/18 Ibuprofen* (Motrin*) 600 Mg Tab, 600 MG PO Q6H PRN for PAIN AND OR ELEVATED TEMP, #30 TAB Prov:NINOSKA MORALES DO 06/19/18 Ondansetron (Ondansetron Odt) 4 Mg Tab.rapdis, 4 MG PO Q6H PRN for NAUSEA AND/OR VOMITING, #10 TAB Prov:AMADOU BERMUDEZ 05/31/18 Amoxicillin/Potassium Clav (Amox-Clav 500-125 mg Tablet) 500-125 mg Tab, 1 TAB PO BID for 10 Days, TAB Prov:AMADOU BERMUDEZ 05/31/18 Ibuprofen* (Ibuprofen*) 600 Mg Tablet, 600 MG PO Q6, #30 TAB 0 Refills Prov:RODRÍGUEZ CHU MD 03/03/17 Medications Current Medications Ondansetron HCl (Zofran Inj) 4 mg BRIDGE ORDER PRN IV NAUSEA/VOMITING; Start 08/26/18 at 03:30; Stop 08/27/18 at 03:29 Acetaminophen (Tylenol Tab) 650 mg ER BRIDGE PRN PO .MILD PAIN 1-3 OR TEMP Last administered on 08/26/18at 09:05; Admin Dose 650 MG; Start 08/26/18 at 03:30; Stop 08/27/18 at 03:29 Sodium Chloride 1,000 ml @ 80 mls/hr [id number] IV Last administered on 08/26/18at 04:44; Admin Dose 80 MLS/HR; Start 08/26/18 at 03:26 IV Flush (NS 3 ml) 3 ml PER PROTOCOL IV ; Start 08/26/18 at 03:30 Ondansetron HCl (Zofran Inj) 4 mg Q6H PRN IV NAUSEA/VOMITING; Start 08/26/18 at 03:30 Acetaminophen (Tylenol Tab) 650 mg Q6H PRN PO .PAIN 1-3 OR TEMP; Start 08/26/18 at 03:30 Hydromorphone HCl (Dilaudid) 0.5 mg Q4H PRN IV .SEVERE PAIN 7-10; Start 08/26/18 at 03:30 Docusate Sodium (Colace) 100 mg Q12H PRN PO .CONSTIPATION; Start 08/26/18 at 03:30 Bisacodyl (Dulcolax) 5 mg DAILY PRN PO .CONSTIPATION; Start 08/26/18 at 03:30 Piperacillin Sod/ Tazobactam Sod 100 ml @ 200 mls/hr Q6 IVPB Last administered on 08/26/18at 11:47; Admin Dose 200 MLS/HR; Start 08/26/18 at 06:00 Allergies: Coded Allergies: No Known Allergies (Unverified Allergy, Unknown, 08/26/18) Past Surgical History Past Surgical Hx: no surgical history Family History Significant Family History: no pertinent family hx Social History Alcohol Use: none Smoking Status: Never smoker Drug Use: none Exam/Review of Systems Exam Vitals Vital Signs Date Temp Pulse Resp B/P (MAP) Pulse Ox O2 O2 Flow FiO2 Time Delivery Rate 08/26/18 98.7 83 16 99/60 (73) 98 Room Air 08:15 Intake and Output 08/25/18 08/25/18 08/26/18 1515:00 23:00 07:00 IntakeIntake Total 100 ml BalanceBalance 100 ml Constitutional: alert, oriented Psych: no complaints Head: normocephalic Eyes: nl conjunctiva ENMT: nl external ears & nose Neck: supple Respiratory: clear to auscultation Gastrointestinal: tender (Slight tenderness right upper quadrant) Extremities: normal pulses Neurological: F[employer]OL[employer] MECH[employer]IC II-XII intact Results Result Diagram: 08/26/18 0200 08/26/18 0200 Results 24hrs Laboratory Tests Test 08/26/18 02:00 08/26/18 02:12 White Blood Count 9.5 Red Blood Count 4.22 Hemoglobin 12.5 Hematocrit 36.9 L Mean Corpuscular Volume 87.4 Mean Corpuscular Hemoglobin 29.6 Mean Corpuscular Hemoglobin Concent 33.9 Red Cell Distribution Width 12.3 Platelet Count 303 Mean Platelet Volume 10.3 Immature Granulocytes % 0.200 Neutrophils % 53.4 Lymphocytes % 37.4 Monocytes % 6.2 Eosinophils % 2.2 Basophils % 0.6 Nucleated Red Blood Cells % 0.0 Immature Granulocytes # 0.020 Neutrophils # 5.1 Lymphocytes # 3.6 H Monocytes # 0.6 Eosinophils # 0.2 Basophils # 0.1 Nucleated Red Blood Cells # 0.0 Prothrombin Time 12.0 Prothrombin Time Ratio 0.9 INR International Normalized Ratio 0.88 Sodium Level 142 Potassium Level 3.7 Chloride Level 103 Carbon Dioxide Level 25 Anion Gap 14 H Blood Urea Nitrogen 24 H Creatinine 0.65 Est Glomerular Filtrat Rate mL/min > 60 Glucose Level 124 Calcium Level 9.8 Total Bilirubin 0.3 Direct Bilirubin 0.00 Indirect Bilirubin 0.3 Aspartate Amino Transf (AST/SGOT) 30 Alanine Aminotransferase (ALT/SGPT) 32 Alkaline Phosphatase 95 Total Protein 8.7 H Albumin 4.9 Globulin 3.80 H Albumin/Globulin Ratio 1.28 Lipase 138 POC Beta HCG, Qualitative NEGATIVE Medications Medication Current Medications Ondansetron HCl (Zofran Inj) 4 mg BRIDGE ORDER PRN IV NAUSEA/VOMITING; Start 08/26/18 at 03:30; Stop 08/27/18 at 03:29 Acetaminophen (Tylenol Tab) 650 mg ER BRIDGE PRN PO .MILD PAIN 1-3 OR TEMP Last administered on 08/26/18at 09:05; Admin Dose 650 MG; Start 08/26/18 at 03:30; Stop 08/27/18 at 03:29 Sodium Chloride 1,000 ml @ 80 mls/hr [id number] IV Last administered on 08/26/18at 04:44; Admin Dose 80 MLS/HR; Start 08/26/18 at 03:26 IV Flush (NS 3 ml) 3 ml PER PROTOCOL IV ; Start 08/26/18 at 03:30 Ondansetron HCl (Zofran Inj) 4 mg Q6H PRN IV NAUSEA/VOMITING; Start 08/26/18 at 03:30 Acetaminophen (Tylenol Tab) 650 mg Q6H PRN PO .PAIN 1-3 OR TEMP; Start 08/26/18 at 03:30 Hydromorphone HCl (Dilaudid) 0.5 mg Q4H PRN IV .SEVERE PAIN 7-10; Start 08/26/18 at 03:30 Docusate Sodium (Colace) 100 mg Q12H PRN PO .CONSTIPATION; Start 08/26/18 at 03:30 Bisacodyl (Dulcolax) 5 mg DAILY PRN PO .CONSTIPATION; Start 08/26/18 at 03:30 Piperacillin Sod/ Tazobactam Sod 100 ml @ 200 mls/hr Q6 IVPB Last administered on 08/26/18at 11:47; Admin Dose 200 MLS/HR; Start 08/26/18 at 06:00 NICOLETTE WOODS MD Aug 26, 2018 12:47
--- NOTE | 2018-08-26 17:18 | PREAC ---
Date/Time of Note Date/Time of Note DATE: 08/26/18 TIME: 17:16 Anesthesia Eval and Record Evaluation Time Pre-Procedure Interview DATE: 08/26/18 TIME: 17:16 Age 33 Sex female NPO: 8 hrs Preoperative diagnosis cholecystitis Planned procedure lap collins Past Medical History Past Medical History: Includes Musculoskeletal: Other (one eye blind) Surgery & Anesthesia Issues No known issue Meds Anticoagulation: No Beta Wilver within 24 hr: No Reason Beta Wilver not given: Pt. not on B-Wilver Active Scripts Acetaminophen* (Tylenol*) 325 Mg Tablet, 2 TAB PO Q6 PRN for PAIN AND OR ELEVATED TEMP, #20 TAB Prov:AMADOU BERMUDEZ 05/31/18 Discontinued Reported Medications Calcium Carbonate* (Calcium Carbonate*) 600 MG Ca Tab, 600 MG PO DAILY, TAB 08/14/14 Vit-Iron Fumarate-FA ( Tablet) 1 Each Tablet, 1 TAB PO DAILY, TAB 08/14/14 Discontinued Scripts Acetaminophen* (Acetaminophen*) 500 MG Extra Strength Tablet, 500 MG PO Q4H PRN for PAIN AND OR ELEVATED TEMP, #30 TAB Prov:NINOSKA MORALES DO 06/19/18 Ondansetron (Ondansetron Odt) 4 Mg Tab.rapdis, 4 MG PO Q6H PRN for NAUSEA AND/OR VOMITING, #15 TAB Prov:NINOSKA MORALES DO 06/19/18 Ibuprofen* (Motrin*) 600 Mg Tab, 600 MG PO Q6H PRN for PAIN AND OR ELEVATED TEMP , #30 TAB Prov:NINOSKA MORALES DO 06/19/18 Ondansetron (Ondansetron Odt) 4 Mg Tab.rapdis, 4 MG PO Q6H PRN for NAUSEA AND/OR VOMITING, #10 TAB Prov:AMADOU BERMUDEZ 05/31/18 Amoxicillin/Potassium Clav (Amox-Clav 500-125 mg Tablet) 500-125 mg Tab, 1 TAB PO BID for 10 Days, TAB Prov:AMADOU BERMUDEZ 05/31/18 Ibuprofen* (Ibuprofen*) 600 Mg Tablet, 600 MG PO Q6, #30 TAB 0 Refills Prov:RODRGÍUEZ CHU MD 03/03/17 Current Medications Ondansetron HCl (Zofran Inj) 4 mg BRIDGE ORDER PRN IV NAUSEA/VOMITING; Start 08/26/18 at 03:30; Stop 08/27/18 at 03:29 Acetaminophen (Tylenol Tab) 650 mg ER BRIDGE PRN PO .MILD PAIN 1-3 OR TEMP Last administered on 08/26/18at 09:05; Admin Dose 650 MG; Start 08/26/18 at 03:30; Stop 08/27/18 at 03:29 Sodium Chloride 1,000 ml @ 80 mls/hr [id number] IV Last administered on 08/26/18at 04:44; Admin Dose 80 MLS/HR; Start 08/26/18 at 03:26 IV Flush (NS 3 ml) 3 ml PER PROTOCOL IV ; Start 08/26/18 at 03:30 Ondansetron HCl (Zofran Inj) 4 mg Q6H PRN IV NAUSEA/VOMITING; Start 08/26/18 at 03:30 Acetaminophen (Tylenol Tab) 650 mg Q6H PRN PO .PAIN 1-3 OR TEMP; Start 08/26/18 at 03:30 Hydromorphone HCl (Dilaudid) 0.5 mg Q4H PRN IV .SEVERE PAIN 7-10; Start 08/26/18 at 03:30 Docusate Sodium (Colace) 100 mg Q12H PRN PO .CONSTIPATION; Start 08/26/18 at 03:30 Bisacodyl (Dulcolax) 5 mg DAILY PRN PO .CONSTIPATION; Start 08/26/18 at 03:30 Piperacillin Sod/ Tazobactam Sod 100 ml @ 200 mls/hr Q6 IVPB Last administered on 08/26/18at 11:47; Admin Dose 200 MLS/HR; Start 08/26/18 at 06:00 Meds reviewed: Yes Allergies Coded Allergies: No Known Allergies (Unverified Allergy, Unknown, 08/26/18) Allergies Reviewed: Yes Labs/Studies Labs Reviewed: Reviewed by anesthesiologist Result Diagram: 08/26/18 0200 08/26/18 020 Laboratory Tests 08/26/18 02:00 test: Negative Studies: ECG (sr), CXR (n/a) Pre-procedure Exam Last vitals Vital Signs Date Temp Pulse Resp B/P (MAP) Pulse Ox O2 O2 Flow FiO2 Time Delivery Rate 08/26/18 98.6 60 16 112/67 99 14:40 (82) 08/26/18 Room Air 08:15 Airway: Adequate mouth opening Mallampati: Mallampati I Teeth: Normal Lung: Normal Heart: Normal ASA Physical Status ASA physical status: 1 Emergency: None Planned Anesthetic General/MAC: ETT Nerve block: TAP (bilateral) Planned Pain Management Single shot nerve block Pre-operative Attestations Prior to commencing anesthesia and surgery, the patient was re-evaluated, there was verification of: *The patient's identity *The results of appropriate recent lab work and preoperative vital signs *The above evaluation not changing prior to induction *Anesthetic plan, risk benefits, alternative and complications discussed with patient/family; questions answered; patient/family understands, accepts and wishes to proceed. SIMRAN SAMSON MD Aug 26, 2018 17:18
[2018-08-26] MEDS ORDERED: BUPIVACAINE 0.25%/EPI (SDV) 30 ML INJ ONE (17:25)
[2018-08-26] MEDS ORDERED: GLYCOPYRROLATE 0.4 MG INJ ONE (17:29)
[2018-08-26] MEDS ORDERED: ONDANSETRON 4 MG INJ ONE (17:29)
[2018-08-26] MEDS ORDERED: METOCLOPRAMIDE 10 MG INJ ONE (17:29)
[2018-08-26] MEDS ORDERED: KETOROLAC 30 MG INJ ONE (17:29)
[2018-08-26] MEDS ORDERED: NEOSTIGMINE 3 MG/3 ML SYRINGE ONE (17:29)
[2018-08-26] MEDS ORDERED: PROPOFOL 20 ML ONE (17:29)
[2018-08-26] MEDS ORDERED: ROCURONIUM 50 MG INJ ONE (17:29)
[2018-08-26] MEDS ORDERED: FENTAnyl 50 MCG/ML VIAL IV PRN ×3 (17:30)
[2018-08-26] MEDS ORDERED: HYDROmorphONE 1 MG/5 ML IV SYRINGE IV PRN ×3 (17:30)
[2018-08-26] MEDS ORDERED: MEPERIDINE 25 MG INJ IV PRN (17:30)
[2018-08-26] MEDS ORDERED: KETOROLAC 30 MG INJ IV PRN (17:30)
[2018-08-26] MEDS ORDERED: DIPHENHYDRAMINE 50 MG INJ IV PRN (17:30)
[2018-08-26] MEDS ORDERED: MIDAZOLAM 1 MG/ML 2 ML INJ ONE (17:32)
[2018-08-26] MEDS ORDERED: ROPIVACAINE 0.5 % 30 ML VIAL ONE (17:32)
--- NOTE | 2018-08-26 18:21 | OPR ---
Date/Time of Note Date/Time of Note DATE: 08/26/18 TIME: 18:17 Operative Report Procedure Date: Aug 26, 2018 Preoperative Diagnosis Acute cholecystitis Postoperative Diagnosis Acute cholecystitis Operation/Procedure Performed 1. Laparoscopic cholecystectomy 2. Placement of drain Surgeon Nicolette Woods MD Medical Insurance Biller None Anesthesia Type: general Anesthesiologist: SIMRAN SAMSON MD Estimated Blood Loss: minimal Transfusion none Specimen Gallbladder Grafts/Implants none Tubes/Drains #19 Round Hipolito drain Complications none Pt Condition Post Procedure: stable Disposition: PACU Indications Acute cholecystitis Procedure Description After satisfactory general endotracheal anesthesia was achieved, the abdomen was prepped and draped in the usual fashion. The abdomen was insufflated with carbon dioxide through an umbilical Veress needle to 15 mmHg pressure. The Veress needle was removed and the umbilical incision extended to 5 mm through which a 5 mm trocar was placed. A 5 mm 0 degree lens was placed. Laparoscopy showed an inflamed edematous gallbladder. Under direct visualization a 12 mm epigastric trocar was placed as well as 2 more 5 mm right lateral abdominal trochars. The dome of the gallbladder was grasped and retracted superiorly. The distal gallbladder was grasped and retracted inferolaterally. The hepatoduodenal ligament was carefully dissected between the gallbladder and the very well visualized common duct. The cystic duct was then triply hemoclipped and divided high at the junction of the gallbladder and the cystic duct. Cystic arteries identified immediately posteriorly this was triply hemoclipped and divided between clips. The gallbladder was then dissected from below using electrocautery dissection and placed fully intact into an Endo Catch removed by the epigastric route hemostasis of the liver bed was made total with electrocautery. Because of the inflamed gallbladder, it was elected to place a drain. A #19 round Hipolito drain was placed draining the right subhepatic space and gallbladder fossa and exited through the lateralmost puncture site where it was secured to skin with 2-0 nylon. The abdomen was then desufflated and the trochars were removed. The fascia of the epigastrium was closed with a single suture of 0 Vicryl. The skin punctures were infiltrated with 30 cc of 0.25% Marcaine epinephrine and closed with alexy. Sponge and needle counts were reported as correct x2. NICOLETTE WOODS MD Aug 26, 2018 18:21
[2018-08-26] MEDS ORDERED: morphine 2 MG INJ IV PRN (18:30)
[2018-08-26] MEDS: HYDROmorphONE 0.5 MG/0.5 ML SYG IV PRN (20:24)
[2018-08-26] MEDS: ONDANSETRON 4 MG INJ IV PRN (20:30)
--- NOTE | 2018-08-26 21:26 | PAC ---
Date/Time of Note Date/Time of Note DATE: 08/26/18 TIME: 21:25 Post-Anesthesia Notes Post-Anesthesia Note Last documented vital signs Vital Signs Date Temp Pulse Resp B/P (MAP) Pulse Ox O2 O2 Flow FiO2 Time Delivery Rate 08/26/18 98.1 90 17 117/70 96 Room Air 21:15 (86) Activity: WNL Respiratory function: WNL Cardiovascular function: WNL Mental status: Baseline Pain reasonably controlled: Yes Hydration appropriate: Yes Nausea/Vomiting absent: No SIMRAN SAMSON MD Aug 26, 2018 21:25
[2018-08-26] MEDS: OXYCODONE/ACETAMINOPHEN (5/325) TAB PO PRN (21:34)
[2018-08-27] MEDS: PIPER-TAZO 3.375 GM IV (PMX) 100 ML IVPB SCH ×3 (00:22→11:48)
[2018-08-27] MEDS: HYDROmorphONE 0.5 MG/0.5 ML SYG IV PRN ×5 (00:28→19:47)
[2018-08-27 02:00] VITALS: BP 111/70; PULSE 91; RESP 18
[2018-08-27] MEDS: OXYCODONE/ACETAMINOPHEN (5/325) TAB PO PRN ×3 (05:00→16:38)
[2018-08-27 08:08] VITALS: BP 115/82; PULSE 88; RESP 18
--- NOTE | 2018-08-27 10:25 | QN ---
Documentation Comment Post cholecystectomy day #1 Moderate bleeding from skin at the JOLANTA drain site. JOLANTA drainage is minimal serosanguineous Abdominal examination is benign Plan: JOLANTA drain removed, with resultant immediate cessation of bleeding Follow H&H If stable, can discharge tomorrow NICOLETTE WOODS MD Aug 27, 2018 10:25
[2018-08-27] MEDS: ONDANSETRON 4 MG INJ IV PRN ×2 (11:49→19:47)
--- NOTE | 2018-08-27 14:22 | PN ---
Date/Time of Note Date/Time of Note DATE: 08/27/18 TIME: 14:19 Assessment/Plan VTE Prophylaxis SCD applied (from Nsg): Yes Pharmacological prophylaxis: NA/contraindicated Pharm contraindication: low risk/ambulating Lines/Catheters IV Catheter Type (from Nrsg): Peripheral IV Urinary Cath still in place: No Assessment/Plan Assessment/Plan 33 yo woman no major PMH or PSH presents with acute cholecystitis # Acute cholecystitis - s/p Lap collins by Dr. Palmer 08/26. JOLANTA drain pulled 08/27. - Pain adequately controlled. - Likely discharge Tuesday. # prophylaxis: SCDs, no GI prophylaxis indicated Result Diagram: 08/27/18 1254 08/27/18 0437 Subjective 24 Hr Interval Summary Free Text/Dictation Went for lap collins last night. JOLANTA drain was placed. This afternoon JOLANTA drain removed. Patient in moderate postoperative pain. Exam/Review of Systems Exam Vitals Vital Signs Date Temp Pulse Resp B/P (MAP) Pulse Ox O2 O2 Flow FiO2 Time Delivery Rate 08/27/18 98.9 88 18 115/82 96 08:08 (93) 08/27/18 Room Air 02:00 Intake and Output 08/26/18 08/26/18 08/27/18 1515:00 23:00 07:00 IntakeIntake Total 460 ml 2100 ml 980 ml OutputOutput Total 60 ml 50 ml BalanceBalance 460 ml 2040 ml 930 ml Exam General: Well appearing woman lying in bed, pain adequately controlled on opioid analgesics. HEENT: Atraumatic, normocephalic. The pupils are equal, round and reactive. Neck: Supple with full range of motion. No rigidity or meningismus Chest: Nontender Lungs: Clear to auscultation bilaterally no crackles rales or wheezing Heart: Normal S1-S2, Regular rhythm and rate. No murmur, S3, or S4 Abdomen: Lap incisions c/d/i. RUQ JOLANTA drain site with clean bandage. Abdomen is soft throughout. Extremities: Normal to inspection, no edema no cyanosis Results Results 24hrs Laboratory Tests Test 08/27/18 04:37 08/27/18 12:54 White Blood Count 10.3 8.1 # Red Blood Count 2.93 #L 2.61 L Hemoglobin 9.0 #L 7.9 L Hematocrit 26.1 #L 23.6 L Mean Corpuscular Volume 89.1 90.4 Mean Corpuscular Hemoglobin 30.7 30.3 Mean Corpuscular Hemoglobin Concent 34.5 33.5 Red Cell Distribution Width 12.5 12.5 Platelet Count 253 225 Mean Platelet Volume 10.5 H 10.1 Immature Granulocytes % 0.400 0.400 Neutrophils % 86.8 H 77.2 H Lymphocytes % 8.2 L 15.7 Monocytes % 4.4 6.5 Eosinophils % 0.0 0.0 Basophils % 0.2 0.2 Nucleated Red Blood Cells % 0.0 0.0 Immature Granulocytes # 0.040 H 0.030 Neutrophils # 8.9 H 6.2 Lymphocytes # 0.8 1.3 Monocytes # 0.5 0.5 Eosinophils # 0.0 0.0 Basophils # 0.0 0.0 Nucleated Red Blood Cells # 0.0 0.0 Sodium Level 134 L Potassium Level 3.9 Chloride Level 105 Carbon Dioxide Level 24 Anion Gap 5 # Blood Urea Nitrogen 13 # Creatinine 0.54 Est Glomerular Filtrat Rate mL/min > 60 Glucose Level 128 Calcium Level 8.2 L Magnesium Level 1.8 Total Bilirubin 0.4 Direct Bilirubin 0.00 Indirect Bilirubin 0.4 Aspartate Amino Transf (AST/SGOT) 74 H Alanine Aminotransferase (ALT/SGPT) 89 H Alkaline Phosphatase 56 Total Protein 6.2 # Albumin 3.6 # Globulin 2.60 Albumin/Globulin Ratio 1.38 Medications Medication Current Medications Sodium Chloride 1,000 ml @ 80 mls/hr [id number] IV Last administered on 08/26/18at 21:38; Admin Dose 80 MLS/HR; Start 08/26/18 at 03:26 IV Flush (NS 3 ml) 3 ml PER PROTOCOL IV ; Start 08/26/18 at 03:30 Ondansetron HCl (Zofran Inj) 4 mg Q6H PRN IV NAUSEA/VOMITING Last administered on 08/27/18at 11:49; Admin Dose 4 MG; Start 08/26/18 at 03:30 Acetaminophen (Tylenol Tab) 650 mg Q6H PRN PO .PAIN 1-3 OR TEMP; Start 08/26/18 at 03:30 Hydromorphone HCl (Dilaudid) 0.5 mg Q4H PRN IV .SEVERE PAIN 7-10 Last administered on 08/27/18at 10:27; Admin Dose 0.5 MG; Start 08/26/18 at 03:30 Docusate Sodium (Colace) 100 mg Q12H PRN PO .CONSTIPATION; Start 08/26/18 at 03:30 Bisacodyl (Dulcolax) 5 mg DAILY PRN PO .CONSTIPATION; Start 08/26/18 at 03:30 Piperacillin Sod/ Tazobactam Sod 100 ml @ 200 mls/hr Q6 IVPB Last administered on 08/27/18at 11:48; Admin Dose 200 MLS/HR; Start 08/26/18 at 06:00 Oxycodone/ Acetaminophen (Percocet (5/ 325)) 1 tab Q4H PRN PO .MILD PAIN (1-3) Last administered on 08/27/18at 07:02; Admin Dose 1 TAB; Start 08/26/18 at 18:30 Oxycodone/ Acetaminophen (Percocet (5/ 325)) 2 tab Q4H PRN PO .MODERATE PAIN (4-6) Last administered on 08/27/18at 05:00; Admin Dose 2 TAB; Start 08/26/18 at 18:30 Morphine Sulfate (morphine) 2 mg ONCE PRN IV .SEVERE PAIN 7-10; Start 08/26/18 at 18:30 Ondansetron HCl (Zofran Inj) 4 mg Q6H PRN IV NAUSEA/VOMITING; Start 08/26/18 at 18:30 ANT CRANE MD Aug 27, 2018 14:22
[2018-08-27 14:31] VITALS: BP 114/95; PULSE 66; RESP 18
[2018-08-27 20:34] VITALS: BP 121/78; PULSE 86; RESP 16
[2018-08-28] MEDS: HYDROmorphONE 0.5 MG/0.5 ML SYG IV PRN ×4 (00:09→17:37)
[2018-08-28 02:33] VITALS: BP 106/66; PULSE 84; RESP 18
--- NOTE | 2018-08-28 06:10 | QN ---
Documentation Comment Postoperative day #2 Hematocrit has dropped to 22. Patient's vital signs are stable Plan: Continue to monitor H&H NICOLETTE WOODS MD Aug 28, 2018 06:10
[2018-08-28 08:00] VITALS: BP 111/69; PULSE 72; RESP 16
[2018-08-28] MEDS: ONDANSETRON 4 MG INJ IV PRN (09:43)
[2018-08-28] MEDS: ACETAMINOPHEN 325 MG TAB PO PRN ×2 (10:23→19:45)
--- NOTE | 2018-08-28 16:52 | PN ---
Date/Time of Note Date/Time of Note DATE: 08/28/18 TIME: 16:49 Assessment/Plan VTE Prophylaxis Risk score (from Nsg)>0 risk: 1 SCD applied (from Nsg): Yes Pharmacological prophylaxis: other Lines/Catheters IV Catheter Type (from Nrsg): Peripheral IV Urinary Cath still in place: No Assessment/Plan Hospital Course S: Patient had some incision site bleeding occurring earlier today, recom mendations given by surgeon for wound care and presently the bleeding has stopped. O: VS- see below PE: General: lying in bed, pain adequately controlled on opioid analgesics. HEENT: Atraumatic, normocephalic. The pupils are equal, round and reactive. Neck: Supple with full range of motion. No rigidity or meningismus Chest: Nontender Lungs: Clear to auscultation bilaterally no crackles rales or wheezing Heart: Normal S1-S2, Regular rhythm and rate. No murmur, S3, or S4 Abdomen: Lap incisions covered with bandage and tape, presently no leakage or bleeding seen through the bandage site. Extremities: Normal to inspection, no edema no cyanosis Assessment/Plan; 33 yo woman no major PMH or PSH presented with acute collins cystitis # Acute cholecystitis- s/p Lap collins by Dr. Palmer 08/26. JOLANTA drain pulled 08/27- Pain adequately controlled. -Given the postop bleeding that occurred earlier today, continue wound care and monitor for now -We will check another hemoglobin later this evening to make sure there is no significant drop in blood -Continue current diet and follow-up other postoperative recommendations from surgery team # prophylaxis: SCDs, no GI prophylaxis indicated Result Diagram: 08/28/18 1119 08/27/18 0437 Results 24hrs Laboratory Tests Test 08/28/18 05:29 08/28/18 11:19 08/28/18 12:50 White Blood Count 6.6 7.6 Red Blood Count 2.42 L 2.53 L Hemoglobin 7.6 L 7.6 L Hematocrit 22.0 L 22.9 L Mean Corpuscular Volume 90.9 90.5 Mean Corpuscular Hemoglobin 31.4 30.0 Mean Corpuscular Hemoglobin Concent 34.5 33.2 Red Cell Distribution Width 12.7 12.7 Platelet Count 197 211 Mean Platelet Volume 9.9 10.3 Immature Granulocytes % 0.200 0.300 Neutrophils % 58.2 70.6 Lymphocytes % 32.8 21.3 Monocytes % 7.3 6.6 Eosinophils % 1.2 0.8 Basophils % 0.3 0.4 Nucleated Red Blood Cells % 0.0 0.0 Immature Granulocytes # 0.010 0.020 Neutrophils # 3.8 5.4 Lymphocytes # 2.2 1.6 Monocytes # 0.5 0.5 Eosinophils # 0.1 0.1 Basophils # 0.0 0.0 Nucleated Red Blood Cells # 0.0 0.0 Urine Color STRAW Urine Clarity CLEAR Urine pH 7.0 Urine Specific [place] 1.005 Urine Ketones NEGATIVE Urine Nitrite NEGATIVE Urine Bilirubin NEGATIVE Urine Urobilinogen NEGATIVE Urine Leukocyte Esterase NEGATIVE Urine Hemoglobin NEGATIVE Urine Glucose NEGATIVE Urine Total Protein NEGATIVE Exam/Review of Systems Exam Vitals Vital Signs Date Temp Pulse Resp B/P (MAP) Pulse Ox O2 O2 Flow FiO2 Time Delivery Rate 08/28/18 98.2 72 16 111/69 99 08:00 (83) 08/27/18 Room Air 02:00 Intake and Output 08/27/18 08/27/18 08/28/18 1515:00 23:00 07:00 IntakeIntake Total 400 ml OutputOutput Total 20 ml BalanceBalance 380 ml Results Results 24hrs Laboratory Tests Test 08/28/18 05:29 08/28/18 11:19 08/28/18 12:50 White Blood Count 6.6 7.6 Red Blood Count 2.42 L 2.53 L Hemoglobin 7.6 L 7.6 L Hematocrit 22.0 L 22.9 L Mean Corpuscular Volume 90.9 90.5 Mean Corpuscular Hemoglobin 31.4 30.0 Mean Corpuscular Hemoglobin Concent 34.5 33.2 Red Cell Distribution Width 12.7 12.7 Platelet Count 197 211 Mean Platelet Volume 9.9 10.3 Immature Granulocytes % 0.200 0.300 Neutrophils % 58.2 70.6 Lymphocytes % 32.8 21.3 Monocytes % 7.3 6.6 Eosinophils % 1.2 0.8 Basophils % 0.3 0.4 Nucleated Red Blood Cells % 0.0 0.0 Immature Granulocytes # 0.010 0.020 Neutrophils # 3.8 5.4 Lymphocytes # 2.2 1.6 Monocytes # 0.5 0.5 Eosinophils # 0.1 0.1 Basophils # 0.0 0.0 Nucleated Red Blood Cells # 0.0 0.0 Urine Color STRAW Urine Clarity CLEAR Urine pH 7.0 Urine Specific [place] 1.005 Urine Ketones NEGATIVE Urine Nitrite NEGATIVE Urine Bilirubin NEGATIVE Urine Urobilinogen NEGATIVE Urine Leukocyte Esterase NEGATIVE Urine Hemoglobin NEGATIVE Urine Glucose NEGATIVE Urine Total Protein NEGATIVE Medications Medication Current Medications IV Flush (NS 3 ml) 3 ml PER PROTOCOL IV ; Start 08/26/18 at 03:30 Ondansetron HCl (Zofran Inj) 4 mg Q6H PRN IV NAUSEA/VOMITING Last administered on 08/28/18 09:43; Admin Dose 4 MG; Start 08/26/18 at 03:30 Acetaminophen (Tylenol Tab) 650 mg Q6H PRN PO .PAIN 1-3 OR TEMP Last administered on 08/28/18 10:23; Admin Dose 650 MG; Start 08/26/18 at 03:30 Hydromorphone HCl (Dilaudid) 0.5 mg Q4H PRN IV .SEVERE PAIN 7-10 Last administered on 08/28/18 12:50; Admin Dose 0.5 MG; Start 08/26/18 at 03:30 Docusate Sodium (Colace) 100 mg Q12H PRN PO .CONSTIPATION; Start 08/26/18 at 03:30 Bisacodyl (Dulcolax) 5 mg DAILY PRN PO .CONSTIPATION; Start 08/26/18 at 03:30 Oxycodone/ Acetaminophen (Percocet (5/ 325)) 1 tab Q4H PRN PO .MILD PAIN (1-3) Last administered on 08/27/18 07:02; Admin Dose 1 TAB; Start 08/26/18 at 18:30 Oxycodone/ Acetaminophen (Percocet (5/ 325)) 2 tab Q4H PRN PO .MODERATE PAIN (4-6) Last administered on 08/27/18 16:38; Admin Dose 2 TAB; Start 08/26/18 at 18:30 Morphine Sulfate (morphine) 2 mg ONCE PRN IV .SEVERE PAIN 7-10; Start 08/26/18 at 18:30 Ondansetron HCl (Zofran Inj) 4 mg Q6H PRN IV NAUSEA/VOMITING; Start 08/26/18 at 18:30 CYDNEY GARCÍA Aug 28, 2018 16:52
[2018-08-28 20:20] VITALS: BP 113/64; PULSE 85; RESP 18
[2018-08-28] MEDS: OXYCODONE/ACETAMINOPHEN (5/325) TAB PO PRN (23:15)
[2018-08-29 02:15] VITALS: BP 99/63; PULSE 93; RESP 18
[2018-08-29] MEDS: OXYCODONE/ACETAMINOPHEN (5/325) TAB PO PRN ×2 (06:25→12:11)
[2018-08-29 07:28] VITALS: BP 109/68; PULSE 80; RESP 16
[2018-08-29] MEDS: ACETAMINOPHEN 325 MG TAB PO PRN (08:04)
--- NOTE | 2018-08-29 13:25 | PDOCDIS ---
Discharge Instructions CONDITION [id number] Patient Condition: [id number] Stable HOME CARE INSTRUCTIONS: [id number] Diet Instructions: [id number] Regular ACTIVITY: [id number] Activity Restrictions: [id number] Slowly Increase Activity Rest between Activity Avoid heavy lifting FOLLOW UP/APPOINTMENTS Follow-up Plan Please take your medications as prescribed, see your doctor in the clinic in the next 1 week. CYDNEY GARCÍA Aug 29, 2018 13:25
[2018-08-29] MEDS ORDERED: HYDR-4011 PO (13:26)
--- NOTE | 2018-08-29 13:31 | DS ---
Date/Time of Note Date/Time of Note DATE: 08/29/18 TIME: 13:29 Discharge Summary Admission/Discharge Info Admit Date/Time Aug 26, 2018 at 03:28 Discharge Date/Time Discharge Diagnosis # Acute cholecystitis- s/p Lap collins by Dr. Palmer 08/26. #Mild postop bleeding: Resolved with appropriate wound care Patient Condition: Stable Procedures Date/Time of Note Date/Time of Note DATE: 08/26/18 TIME: 18:17 Operative Report Procedure Date: Aug 26, 2018 Preoperative Diagnosis Acute cholecystitis Postoperative Diagnosis Acute cholecystitis Operation/Procedure Performed 1. Laparoscopic cholecystectomy 2. Placement of drain Hx of Present Illness 33-year-old female with a past medical history of gallstones who presents to the emergency department complaining of right upper quadrant abdominal pain. patient has dealt with the same pain and been to the emergency department 3 times for this. She states that the pain last night came 1 hour approximately after she ate. She states the pain was sharp and constant for approximately 3 hours. In the past she would take Tylenol to help with her pain but it was not helping. She denies any nausea vomiting or diarrhea. Denies any fevers. Hospital Course Patient was admitted and seen by surgery team during this hospital stay. She underwent lap scopic cholecystectomy. Afterwards she had drain placed and this was removed about 24 hours after the surgery. However she did have some postoperative bleeding from the incision site, this was controlled with appropriate wound care and evaluation by the surgery team. She was able to ambulate, tolerated p.o. diet. After getting clearance from the surgery team she will be discharged home today in improved condition. See below for full list of discharge medications. Home Meds Active Scripts Hydrocodone/Acetaminophen ([place] 5-325 Tablet) 1 Each Tablet, 1 EACH PO Q6, #20 TAB Prov:CYDNEY GARCÍA S. 08/29/18 Acetaminophen* (Tylenol*) 325 Mg Tablet, 2 TAB PO Q6 PRN for PAIN AND OR ELEVATED TEMP, #20 TAB Prov:AMADOU BERMUDEZ 05/31/18 Discontinued Reported Medications Calcium Carbonate* (Calcium Carbonate*) 600 MG Ca Tab, 600 MG PO DAILY, TAB 08/14/14 Vit-Iron Fumarate-FA ( Tablet) 1 Each Tablet, 1 TAB PO DAILY, TAB 08/14/14 Discontinued Scripts Acetaminophen* (Acetaminophen*) 500 MG Extra Strength Tablet, 500 MG PO Q4H PRN for PAIN AND OR ELEVATED TEMP, #30 TAB Prov:NINOSKA MORALES DO 06/19/18 Ondansetron (Ondansetron Odt) 4 Mg Tab.rapdis, 4 MG PO Q6H PRN for NAUSEA AND/OR VOMITING, #15 TAB Prov:NINOSKA MORALES DO 06/19/18 Ibuprofen* (Motrin*) 600 Mg Tab, 600 MG PO Q6H PRN for PAIN AND OR ELEVATED TEMP, #30 TAB Prov:NINOSKA MORALES DO 06/19/18 Ondansetron (Ondansetron Odt) 4 Mg Tab.rapdis, 4 MG PO Q6H PRN for NAUSEA AND/OR VOMITING, #10 TAB Prov:AMADOU BERMUDEZ 05/31/18 Amoxicillin/Potassium Clav (Amox-Clav 500-125 mg Tablet) 500-125 mg Tab, 1 TAB PO BID for 10 Days, TAB Prov:AMADOU BERMUDEZ 05/31/18 Ibuprofen* (Ibuprofen*) 600 Mg Tablet, 600 MG PO Q6, #30 TAB 0 Refills Prov:RODRÍGUEZ CHU MD 03/03/17 Follow-up Plan Please take your medications as prescribed, see your doctor in the clinic in the next 1 week. Primary Care Provider Care Physician No Primary Time spent on discharge: > 30 minutes Pending Labs Laboratory Tests Test 08/28/18 17:20 08/29/18 06:39 Hemoglobin 7.8 g/dl (12.0-16.0) 7.8 g/dl (12.0-16.0) Hematocrit 23.4 % (37.0-47.0) 23.1 % (37.0-47.0) White Blood Count 6.7 10^3/ul (4.8-10.8) Red Blood Count 2.53 10^6/ul (4.20-5.40) Mean Corpuscular Volume 91.3 fl (82.0-101.0) Mean Corpuscular Hemoglobin 30.8 pg (29.0-33.0) Mean Corpuscular 33.8 g/dl (32.0-37.0) Hemoglobin Concent Red Cell Distribution Width 12.5 % (11.5-14.5) Platelet Count 224 10^3/UL (140-415) Mean Platelet Volume 10.1 fl (7.4-10.4) Immature Granulocytes % 0.400 % (0.001-0.429) Neutrophils % 52.7 % (39.0-77.0) Lymphocytes % 37.9 % (15.0-51.0) Monocytes % 6.4 % (0.0-11.0) Eosinophils % 2.2 % (0.0-7.0) Basophils % 0.4 % (0.0-2.0) Nucleated Red Blood Cells % 0.0 /100WBC (0.0-0.0) Immature Granulocytes # 0.030 10^3/ul (0.0-0.031) Neutrophils # 3.5 10^3/ul (1.6-7.5) Lymphocytes # 2.5 10^3/ul (0.8-2.9) Monocytes # 0.4 10^3/ul (0.3-0.9) Eosinophils # 0.2 10^3/ul (0.0-0.5) Basophils # 0.0 10^3/ul (0.0-0.1) Nucleated Red Blood Cells # 0.0 10^3/ul (0.0-0.0) Sodium Level 141 mmol/L (135-144) Potassium Level 3.6 mmol/L (3.5-5.1) Chloride Level 104 mmol/L (97-110) Carbon Dioxide Level 29 mmol/L (21-31) Anion Gap 8 (5-13) Blood Urea Nitrogen 12 mg/dl (7-20) Creatinine 0.56 mg/dl (0.44-1.00) Est Glomerular Filtrat > 60 mL/min (>60) Rate mL/min Glucose Level 96 mg/dl (70-220) Calcium Level 8.6 mg/dl (8.4-10.2) Phosphorus Level 3.1 mg/dl (2.5-4.9) Magnesium Level 2.1 mg/dl (1.7-2.5) CYDNEY GARCÍA Aug 29, 2018 13:31
[2018-08-29 14:12] VITALS: BP 117/77; PULSE 86; RESP 16
== END 2018-08-29 16:55 | disposition home or self-care (01) | DRG 419 ==
LOC: E/R 01:24 → 5EC 03:28 → PP2 08-27 06:55
PROVIDERS: ADMIT Family Medicine; ATTEND Hospitalist
PROC: 0F9440Z Drainage of Gallbladder with Drainage Device, Percutaneous Endoscopic Approach (ICD-10-PCS; 2018-08-26)
PROC: 0F9140Z Drainage of Right Lobe Liver with Drainage Device, Percutaneous Endoscopic Approach (ICD-10-PCS; 2018-08-26)
PROC: 0FT44ZZ Resection of Gallbladder, Percutaneous Endoscopic Approach (ICD-10-PCS; principal; 2018-08-26 17:30)
DX: K81.0 Acute cholecystitis (principal)
CPT/HCPCS: 36415; 74181; 76705; 80048; 80053; 81003; 81025; 83690; 83735; 84100; 85014; 85018; 85025; 85610; 88304; 93005; 96374; 96375; J1170; J1885; J2175; J2250; J2270; J2405; J2543; J2710; J2765; J2795; J7030